=== PATIENT | male | born 1975 | race Caucasian/White ===

== ENCOUNTER 2016-05-30 21:15 | Emergency (ER) | payer BC ==
[~2016-05-30] VITALS: Ht 165.1 cm; Wt 79.1 kg
[2016-05-30 21:19] VITALS: Ht 165.1 cm; Wt 79.1 kg
--- NOTE | 2016-05-30 22:04 | ERA ---
ER Documentation Chief Complaint Date/Time DATE: 05/30/16 TIME: 22:04 Chief Complaint dizziness and body pain since earlier today HPI The patient is a 41-year-old male, presenting to the ER because of intermittent dizziness, general body pain that began this morning. He denies similar symptoms previously, complains of frontal headache, denies blurred vision, diplopia, facial pain, neck pain, chest pain, dyspnea. He denies abdominal pain , vomiting, diarrhea, dysuria. He does not smoke, drink Past medical history: hypertension, GERD, dyslipidemia, medical noncompliance Past surgical history: None ROS All systems reviewed and are negative except as per history of present illness. Medications Home Meds Active Scripts Meclizine Hcl* (Antivert*) 12.5 Mg Tab, 25 MG PO Q6H Y for DIZZINESS, #20 TAB Prov:GAYLE CHAUDHRY MD 05/31/16 Reported Medications Simvastatin* (Zocor*) 10 Mg Tablet, 10 MG PO QHS, #30 TAB 05/30/16 Omeprazole* (Omeprazole*) 40 Mg Capsule.dr, 40 MG PO DAILY, #30 CAP 05/30/16 Discontinued Reported Medications [None] No Conflict Check 10/25/12 Allergies Allergies: Coded Allergies: No Known Drug Allergies (Verified Allergy, Unknown, 05/30/16) PMhx/Soc History of Surgery: No Anesthesia Reaction: No Hx Neurological Disorder: No Hx Respiratory Disorders: No Hx Cardiac Disorders: No Hx Psychiatric Problems: No Hx Miscellaneous Medical Probl: Yes (ear infection) Hx Alcohol Use: No Hx Substance Use: No Hx Tobacco Use: No Physical Exam Vitals Vital Signs Date Time Temp Pulse Resp B/P Pulse Ox O2 Delivery O2 Flow Rate FiO2 05/31/16 00:36 98.5 103 16 117/75 96 Room Air 05/30/16 22:28 106 14 140/99 98 Room Air 05/30/16 21:19 97.8 120 18 142/89 96 Physical Exam Const: No acute distress. Head: Atraumatic. Eyes: Normal Conjunctiva. ENT: Normal External Ears, Nose and Mouth. Neck: Full range of motion. No meningismus. Resp: Clear to auscultation bilaterally. Cardio: Regular but tachycardic Abd: Soft, non distended, normal bowel sounds, non tender. Skin: No petechiae or rashes. Back: No midline or flank tenderness. Ext: No cyanosis, or edema. Neur: Awake and alert. No focal deficit Psych: Normal Mood and Affect. Result Diagram: 05/30/16222405/30/162224 Results 24 hrs Laboratory Tests Test 05/30/16 22:25 Activated Partial Thromboplast Time 26.8Sec Anion Gap 19 Basophils # 0.010^3/ul Basophils % 0.0% Blood Morphology Comment Blood Urea Nitrogen 17mg/dl Calcium Level 9.1mg/dl Carbon Dioxide Level 23mmol/L Chloride Level 105mmol/L Creatinine 0.78mg/dl D-Dimer 221.80ng/ml D-Dimer Comment Eosinophils # 0.010^3/ul Eosinophils % 0.3% Glucose Level 119mg/dl Hematocrit 48.4% Hemoglobin 16.3g/dl INR International Normalized Ratio 0.94 Lymphocytes # 0.910^3/ul Lymphocytes % 11.0% Mean Corpuscular Hemoglobin 28.1pg Mean Corpuscular Hemoglobin Concent 33.6g/dl Mean Corpuscular Volume 83.6fl Mean Platelet Volume 10.0fl Monocytes # 0.310^3/ul Monocytes % 3.0% Neutrophils # 7.310^3/ul Neutrophils % 85.7% Nucleated Red Blood Cells # 0.010^3/ul Nucleated Red Blood Cells % 0.0/100WBC Platelet Count 29726^3/UL Potassium Level 3.8mmol/L Prothrombin Time 12.6Sec Prothrombin Time Ratio 1.0 Red Blood Count 5.8010^6/ul Red Cell Distribution Width 13.8% Sodium Level 143mmol/L White Blood Count 8.510^3/ul Current Medications Medications (Trade) Dose Ordered Sig/Samia Route PRN Reason Start Time Stop Time Status Last Admin Dose Admin Meclizine HCl (Antivert) 25 mg ONCE ONCE PO 05/30/16 22:30 05/30/16 22:31 DC 05/30/16 22:24 Procedures/MDM EKG: Read by emergency physician Rate/Rhythm: Sinus tachycardia 116 beats per min QRS, ST, T-waves: No ST elevation, no T wave inversion, LAD Impression: Abnormal EKG [place] [id number] Radiology Main Line: [phone] DIAGNOSTIC IMAGING REPORT Patient: CADY EDWARDS : 1975 Age: 41 Sex: M MR #: [id number] DOS: 05/30/16 2212 Ordering MD: GAYLE CHAUDHRY MD Location: [facility] Room/Bed: PROCEDURE: CT Head without. CLINICAL INDICATION: Headache. TECHNIQUE: The study was performed utilizing a multi-slice, multidetector CT scanner. Direct spiral 1 mm axial sections were obtained through the head without the use of intravenous contrast material. Coronal and sagittal reformations were obtained. The images were reviewed on a PACS workstation. RADIATION DOSE: CTDIvol: 45.0 mGy DLP: 720.2 mGy-cm COMPARISON: 03/31/2014 FINDINGS: There is no intracranial hemorrhage, extra-axial fluid collection, mass lesion, midline shift or hydrocephalus. The ventricles, sulci and cisterns are within normal limits. The white matter is unremarkable. The hamilton-white matter differentiation is preserved. The basal cisterns are patent. The midline structures are intact. The orbits, calvarium and extracranial soft tissues are normal in appearance. The visualized paranasal sinuses, mastoid air cells and middle ear cavities are normally aerated. IMPRESSION: 1. No acute intracranial abnormality. No intracranial hemorrhage, extra-axial fluid collection, mass lesion or hydrocephalous. RPTAT: HGAS .Brice Craven MD, MD Date Time Electronically viewed and signed by .Brice Craven MD, MD on 05/30/2016 23: 51 .S/ CC: GAYLE CHAUDHRY MD MEDICAL MAKING DECISION: The patient is a 41-year-old male, presenting with acute dizziness of unclear etiology. He was treated with Antivert 25 mg p.o. with good response. The differential diagnoses considered include but are not limited to central causes such as cerebellar infarct, cerebellar hemorrhage, cerebellar tumor, acoustic neuroma, peripheral causes such as benign positional vertigo, labyrinthitis, medication, Meniere's disease. Departure Diagnosis: Primary Impression: Dizziness Condition: Good Comments I discussed the findings with the patient. I advised the patient to follow-up with the primary physician in about 1-2 days, sooner if needed and return if any concern. He was discharged with GAYLE Hastings MD May 30, 2016 22:04
[2016-05-30] MEDS ORDERED: SIMV10TA76 PO (22:15)
[2016-05-30] MEDS ORDERED: OMEP40CA6 PO (22:15)
[2016-05-30] MEDS ORDERED: MECLIZINE 12.5 MG TAB PO ONE (22:30)
[2016-05-30 22:45] LABS: EOSINOPHILS % 0.3 % (0.0-7.0); HEMATOCRIT 48.4 % (42.0-52.0); HEMOGLOBIN 16.3 g/dl (14.0-18.0); LYMPHOCYTES # 0.9 10^3/ul (0.8-2.9); MEAN CORPUSCULAR HEMOGLOBIN 28.1 pg (29.0-33.0); MEAN CORPUSCULAR HGB CONC 33.6 g/dl (32.0-37.0); MEAN CORPUSCULAR VOLUME 83.6 fl (82.0-101.0); MONOCYTE # 0.3 10^3/ul (0.3-0.9); NEUTROPHIL # 7.3 10^3/ul (1.6-7.5); NEUTROPHILS % 85.7 % (39.0-77.0); PLATELET COUNT 172 10^3/UL (140-440); RED CELL DISTRIBUTION WIDTH 13.8 % (11.5-14.5); UNCORRECTED WBC 8.5 10^3/ul (4.8-10.8); WHITE BLOOD COUNT 8.5 10^3/ul (4.8-10.8)
[2016-05-30 22:46] LABS: CONDITION 1
[2016-05-30 22:48] LABS: INR 0.94; POTASSIUM 3.8 mmol/L (3.5-5.1); PROTIME 12.6 Sec (12.2-14.2)
[2016-05-30 22:49] LABS: PARTIAL THROMBOPLASTIN TIME 26.8 Sec (25.0-35.0)
[2016-05-30 22:50] LABS: CREATININE 0.78 mg/dl (0.61-1.24)
[2016-05-30 22:51] LABS: CALCIUM 9.1 mg/dl (8.4-10.2)
[2016-05-30 22:53] LABS: D-DIMER 221.8 ng/ml (<460)
--- NOTE | 2016-05-30 23:52 | RADRPT ---
PROCEDURE: CT Head without. CLINICAL INDICATION: Headache. TECHNIQUE: The study was performed utilizing a multi-slice, multidetector CT scanner. Direct spira l 1 mm axial sections were obtained through the head without the use of intravenous contrast materia l. Coronal and sagittal reformations were obtained. The images were reviewed on a PACS workstation. RADIATION DOSE: CTDIvol: 45.0 mGyDLP: 720.2 mGy-cm COMPARISON: 03/31/2014 FINDINGS: There is no intracranial hemorrhage, extra-axial fluid collection, mass lesion, midline shift or hyd rocephalus. The ventricles, sulci and cisterns are within normal limits. The white matter is unrem arkable. The hamilton-white matter differentiation is preserved. The basal cisterns are patent. The m idline structures are intact. The orbits, calvarium and extracranial soft tissues are normal in sahil earance. The visualized paranasal sinuses, mastoid air cells and middle ear cavities are normally ae rated. IMPRESSION: 1. No acute intracranial abnormality. No intracranial hemorrhage, extra-axial fluid collection, ma ss lesion or hydrocephalous. RPTAT: HGAS .Brice Craven MD, Date Time Electronically viewed and signed by .Brice Craven MD, on 05/30/2016 23:51 .S/
[2016-05-31 00:36] VITALS: BP 117/75; PULSE 103; RESP 16; TEMP 98.5
[2016-05-31] MEDS ORDERED: MECL12.574 PO (00:47)
== END 2016-05-31 00:53 | disposition home or self-care (01) ==
LOC: FTE 21:15
DX: R42 Dizziness and giddiness (principal); I10 Essential (primary) hypertension; R40.2142 Coma scale, eyes open, spontaneous, at arrival to emergency department; R40.2252 Coma scale, best verbal response, oriented, at arrival to emergency department; R40.2362 Coma scale, best motor response, obeys commands, at arrival to emergency department
CPT/HCPCS: 36415; 70450; 80048; 85025; 85378; 85610; 85730; 93005